=== PATIENT | male | born 1980 | race Hispanic/Latino ===

== ENCOUNTER 2019-05-12 06:35 | Day surgery (SDC) | payer OTHER ==
[2019-05-11 09:45] LABS: BASOPHILS % (AUTO) 0.6 % (0.0-5.0); EOSINOPHILS % (AUTO) 7.7 % (0.0-8.0); LYMPHOCYTES % (AUTO) 30.5 % (21.0-51.0); MEAN CORPUSCULAR HEMOGLOBIN 30.5 pg (27.0-33.0); MEAN CORPUSCULAR HGB CONC 32.8 g/dL (32.0-36.0); MEAN CORPUSCULAR VOLUME 92.9 fL (79-99); MONOCYTES % (AUTO) 8.6 % (3.0-13.0); NEUTROPHILS % (AUTO) 52.2 % (40.0-77.0); PLATELET COUNT (AUTO) 178 K/uL (130-400); RED BLOOD CELL COUNT(AUTO) 4.95 MIL/uL (4.50-6.20); WHITE BLOOD COUNT (AUTO) 7.8 K/uL (4.8-10.8)
[2019-05-11 10:00] VITALS: BP 153/95
[2019-05-11 10:00] LABS: CREATININE 0.8 mg/dL (0.5-1.5); POTASSIUM 4.8 mmol/L (3.5-5.1)
[2019-05-11] MEDS: CEFAZOLIN SODIUM 1 GM VIAL IVP SCH (10:30)
[2019-05-11 11:55] VITALS: BP 129/78
[2019-05-11] MEDS: LACTATED RINGERS 1000ML 1,000 ML IV SCH (12:19)
--- NOTE | 2019-05-11 12:25 | NUR ---
POTENTIAL FOR INFECTION: SHAVED RIGHT SHOULDER / RIGHT UPPER ARM PER MAKENNA ALARCON, FOLLOWED BY WIPING WITH CUCA: 2% CHLORHEXIDINE GLUCONATE CLOTH PATIENTS PRE-OP SKIN PREP.
--- NOTE | 2019-05-11 15:45 | NUR ---
PATIENT INFORMED THAT SURGERY WAS GOING TO BE CANCELED TODAY AND RESCHEDULED FOR TOMORROW MORNING. PATIENT INSTRUCTED TO EAT NOTHING AFTER MIDNIGHT TONIGHT AND REPORT TO HOSPITAL TOMORROW MORNING AT 6AM. PATIENT VERBALIZED UNDERSTANDING.
[2019-05-12] VITALS (12 sets, daily range): BP systolic 121–142; BP diastolic 70–83
[~2019-05-12] VITALS: Ht 182.9 cm; Wt 113.0 kg
[2019-05-12] MEDS ORDERED: LACTATED RINGERS 1000ML 1,000 ML IV ONE (06:52)
[2019-05-12] MEDS ORDERED: ROPIVACAINE 0.5% 5MG/ML 30ML IJ ONE (07:08)
[2019-05-12] MEDS: LACTATED RINGERS 1000ML 1,000 ML IV SCH (07:10)
[2019-05-12] MEDS ORDERED: ONDANSETRON HCL 4 MG/2 ML VIAL ONE (07:13)
[2019-05-12] MEDS ORDERED: LIDOCAINE PF 2% 5ML ABBOJECT ONE (07:13)
[2019-05-12] MEDS ORDERED: MIDAZOLAM HCL 1 MG/ML 2ML VIAL ONE (07:14)
[2019-05-12] MEDS ORDERED: PROPOFOL 10 MG/ML 20ML VIAL IV ONE (07:14)
[2019-05-12] MEDS ORDERED: ROCURONIUM 10MG/1ML SYR 10 MG/ML ML ONE (07:14)
[2019-05-12] MEDS ORDERED: GLYCOPYRROLATE 1 MG/5 ML SYRINGE ONE (07:14)
[2019-05-12] MEDS ORDERED: NEOSTIGMINE 5MG/5ML SYR IV ONE (07:14)
[2019-05-12] MEDS ORDERED: DEXAMETHASONE SOD PHOSPHATE 10MG/ML 1ML VIAL ONE (07:14)
[2019-05-12] MEDS ORDERED: FENTANYL CITRATE PF 50 MCG/1 ML 2ML VIAL ONE ×2 (07:15→08:48)
[2019-05-12] MEDS: CEFAZOLIN SODIUM 1 GM VIAL IVP SCH (08:00)
[2019-05-12] MEDS ORDERED: EPINEPHRINE 1 MG/ML 30ML VIAL IJ ONE (08:41)
[2019-05-12] MEDS ORDERED: LIDOCAINE HCL MDV 0.5% 50ML VIAL IJ ONE (09:18)
== END 2019-05-12 11:00 | disposition home or self-care (01) ==
LOC: DAH 06:35
PROVIDERS: ATTEND Orthopaedic Surgery
DX: M75.111 Incomplete rotator cuff tear or rupture of right shoulder, not specified as traumatic (principal); M75.41 Impingement syndrome of right shoulder; M75.51 Bursitis of right shoulder; F17.210 Nicotine dependence, cigarettes, uncomplicated; Z72.89 Other problems related to lifestyle; Z83.3 Family history of diabetes mellitus; Z82.49 Family history of ischemic heart disease and other diseases of the circulatory system; Z82.5 Family history of asthma and other chronic lower respiratory diseases
CPT/HCPCS: 29822; 29826; 36415; 64415; 76942; 80048; 85025; A4213; A4215 ×2; A4221 ×2; A4222 ×2; A4223 ×2; A4510 ×2; A4565; A4600 ×2; A4649 ×2; A4663 ×2; A4930 ×2; A5120; A6223; J0171; J0690; J1030; J1100; J2001; J2250; J2405; J2704; J2710; J2795; J3010 ×2; J3490 ×2; J7030 ×2; J7120 ×3

== ENCOUNTER 2025-02-04 16:20 | Emergency (ER) | payer OTHER ==
[~2025-02-04] VITALS: Ht 180.3 cm; Wt 106.6 kg
--- NOTE | 2025-02-04 17:19 | ERN ---
ED Note History of Present Illness Stated Complaint: RT SIDE FACIAL NUMBNESS Chief Complaint: Numbness Time Seen by MD: 16:51 Time Seen by Midlevel: 17:00 Dictation: Mr. Edmondson is a 44-year-old male with history of hypertension and nicotine dependence (smokes 5-6 cigarettes/day) who presented to the emergency department this afternoon for evaluation of tingling sensation of the lip. He reports two days of intermittent right-sided perioral tingling and a sensation that he could not hold water in from the right corner of his mouth. He has no true facial numbness. He denies weakness, vision changes, gait difficulty, dysarthria, dysphagia, dizziness, vision changes, or limb paresthesias. Allergies: Coded Allergies: No Known Drug Allergies (Unverified Allergy, Unknown, 05/11/19) Home Meds No Active Prescriptions or Reported Meds Past Medical History Past Medical History: Hypertension Additional Past Medical Hx: BELLS PALSY Surgical History: None PSYCH History: no pertinent psych hx Social History: Smokers (smokes 5-6 cigarettes/day), Lives with family RN Note Reviewed/Agreed w/PFSH: Yes Review of System Dictation REVIEW OF SYSTEMS: CONSTITUTIONAL: Patient denies fevers, chills, sweats and weight changes. EYES: Patient denies any visual symptoms. EARS, NOSE, AND THROAT: No difficulties with hearing. No symptoms of rhinitis or sore throat. CARDIOVASCULAR: Patient denies chest pains, palpitations, orthopnea and p aroxysmal nocturnal dyspnea. States blood pressure has been well controlled RESPIRATORY: No dyspnea on exertion, no wheezing or cough. GI: No nausea, vomiting, diarrhea, constipation, abdominal pain, hematochezia or melena. : No urinary hesitancy or dribbling. No nocturia or urinary frequency. No abnormal urethral discharge. MUSCULOSKELETAL: No myalgias or arthralgias. NEUROLOGIC: No chronic headaches, no seizures. Denies dizziness. Denies difficulty speaking. Denies difficulty swallowing. Denies difficulty walking. States that two days ago he noted a slight drooping right corner of the mouth and a tingling sensation. He states that he felt like he "could not hold water in". He states he had similar symptoms about 10 years ago but they were much worse. PSYCHIATRIC: Patient denies problems with mood disturbance. No problems with anxiety. ENDOCRINE: No excessive urination or excessive thirst. DERMATOLOGIC: Patient denies any rashes or skin changes. Initial Vital Sign VS Vital Signs Date Time Temp Pulse Resp B/P (MAP) Pulse Ox O2 Delivery O2 Flow Rate FiO2 02/04/25 16:25 98.1 62 20 135/78 99 Room Air 02/04/25 16:52 0 21 Physical Exam Dictation Vital signs: Reviewed. Afebrile. Constitutional: No acute distress. Non-toxic appearing. Head/Face: Normocephalic, atraumatic. Eyes: Periorbital areas with no swelling, redness, or edema. Lids and lashes are normal. Conjunctival injection is absent. Sclera anicteric. Pupils equal, round, reactive to light. ENT: Pinnas intact and no signs of trauma or erythema. Ear canals clear and no discharge. TMs no erythema. No nasal discharge or bleeding noted. Oropharynx with no exudate, redness, swelling, masses, exudates, or evidence of obstruction. Uvula midline. Mucous membranes moist. Neck: Trachea midline, no masses palpated, and no cervical lymphadenopathy. No swelling. Supple, full range of motion. Chest/Axilla: No tenderness, no crepitus, no paradoxical movement, no retractions. Cardiovascular: Regular rate, regular rhythm, no murmur, no gallops. Symmetric pulses. No peripheral edema. Twelve lead EKG reflects a sinus bradycardia without ST-elevation. BP 122/77. Respiratory: Respirations even and unlabored. Lung sounds clear; no wheezes, rales or rhonchi. Room air SpO2 97% Gastrointestinal: Inspection is normal. No distention is appreciated. Bowel sounds are normal. No mass or organomegaly . There is no tenderness. No rebound. No rigidity. No voluntary or involuntary guarding. No Parson's sign. Neurological: On exam he is alert and oriented with clear speech and no dysarthria. Cranial nerves II-XII are intact except for a small very mild right lower facial asymmetry at rest and with activation. Movement is symmetric, eyebrow raise is intact, eye closure strong. No dysarthria or aphasia. No dysphasia. Motor strength 5/5 in all extremities, normal gait, coordination is intact, sensation intact. NIHSS=1 minor facial palsy only. Musculoskeletal/Extremities: All extremities have full range of motion, no pain or tenderness on palpation. Symmetric pulses. Integumentary: Intact. Skin is normal color, warm and dry. Cap refill less than 3 seconds. Results (Laboratory/Radiology) Laboratory/Radiology Laboratory Tests Test 02/04/25 17:38 White Blood Count 7.9 K/uL (4.8-10.8) Red Blood Count 4.35 MIL/uL (4.50-6.20) L Hemoglobin 13.9 g/dL (14.0-18.0) L Hematocrit 42.0 % (42-54) Mean Corpuscular Volume 96.6 fL (79-99) Mean Corpuscular Hemoglobin 32.0 pg (27.0-33.0) Mean Corpuscular Hemoglobin Concent 33.1 g/dL (32.0-36.0) Red Cell Distribution Width 13.2 % (11.0-15.5) Platelet Count 165 K/uL (130-400) Mean Platelet Volume 11.2 fL (7.5-10.5) H Immature Granulocyte % (Auto) 0.5 % (0-1) Neutrophils (%) (Auto) 53.8 % (40.0-77.0) Lymphocytes (%) (Auto) 31.4 % (21.0-51.0) Monocytes (%) (Auto) 8.0 % (3.0-13.0) Eosinophils (%) (Auto) 5.9 % (0.0-8.0) Basophils (%) (Auto) 0.4 % (0.0-5.0) Neutrophils # (Auto) 4.2 K/uL (1.8-7.7) Lymphocytes # (Auto) 2.5 K/uL (1.0-4.8) Monocytes # (Auto) 0.6 K/uL (0.1-1.0) Eosinophils # (Auto) 0.46 K/uL (0.00-0.70) Basophils # (Auto) 0.03 K/uL (0.00-0.20) Absolute Immature Granulocyte (auto 0.04 K/uL (0-1) Nucleated Red Blood Cells 0.0 % (0.0-0.19) Sodium Level 136 mmol/L (136-145) Potassium Level 3.6 mmol/L (3.5-5.1) Chloride Level 102 mmol/L (101-111) Carbon Dioxide Level 28 mmol/L (21-32) Blood Urea Nitrogen 14 mg/dL (7-18) Creatinine 0.9 mg/dL (0.5-1.3) Glomerular Filtration Rate Calc 107 mL/min (>90) Random Glucose 94 mg/dL (70-105) Total Calcium 8.4 mg/dL (8.5-10.1) L Magnesium Level 2.00 mg/dL (1.80-2.40) Total Bilirubin 0.4 mg/dL (0.2-1.0) Direct Bilirubin 0.1 mg/dL (0.0-0.3) Aspartate Amino Transf (AST/SGOT) 17 U/L (10-37) Alanine Aminotransferase (ALT/SGPT) 25 U/L (12-78) Alkaline Phosphatase 50 U/L (50-136) Troponin I High Sensitivity 9 ng/L (4-75) Total Protein 6.9 g/dL (6.0-8.3) Albumin 3.5 g/dL (3.5-5.0) Labs Reviewed?: Yes EKG Comment: EKG Interpretation: Time Reviewed: 1829 Ventricular rate: 53 bpm NC Interval: 202 ms QRS duration: [address] segment elevation or depression. Clinical impression: Sinus bradycardia EKG Reviewed and interpreted by Dr Lora Ramos CT Scan Comment: PATIENT: MALINDA EDMONDSON JR MR#: [id number] : 1980 SEX: M AGE: 44 LOCATION: [facility] ORDER 15 STATUS: [facility] REPORT#: [id number] SERVICE 13 REASON: stroke symptoms ORDERING PHYSICIAN: JESSIE FERNANDEZ PROCEDURE: HEAD WO - CT HEAD/BRAIN W/O CONTRAST EXAM: CT Head Without IV contrast. CLINICAL HISTORY: stroke symptoms TECHNIQUE: Axial computed tomography images of the head/brain without intravenous contrast. COMPARISON: None provided. FINDINGS: BRAIN: No evidence of acute hemorrhage. No mass lesion. No CT evidence for acute territorial infarct. No midline shift or extra-axial collections. VENTRICLES: No hydrocephalus. ORBITS: The orbits are unremarkable. SINUSES AND MASTOIDS: Left maxillary and bilateral ethmoidal sinusitis. BONES: No fracture. SOFT TISSUES: Unremarkable. IMPRESSION: No acute intracranial abnormality. No acute intracranial hemorrhage / territorial infarcts. Recommend an MRI of the brain for further evaluation if symptoms persist. /[place] DICTATED BY: CATARINO LICONA MD DATE: 02/04/251921 ELECTRONICALLY SIGNED BY: CATARINO LICONA MD DATE: 02/04/251921 ED Course ED Course Orders Procedure Category Date Status Time Ct Head/Brain W/O CT 02/04/25 Resulted Contrast 17:14 Cbc With Differential LAB 02/04/25 Complete 17:14 Basic Metabolic Panel LAB 02/04/25 Complete 17:14 Hepatic Function Panel LAB 02/04/25 Complete 17:14 Magnesium LAB 02/04/25 Complete 17:14 12 Lead Ekg Tracing- EKG 02/04/25 Logged Technical 17:17 Troponin I High LAB 02/04/25 Complete Sensitivity 17:17 Vital Signs Date Time Temp Pulse Resp B/P (MAP) Pulse Ox O2 Delivery O2 Flow Rate FiO2 02/04/25 18:35 98.2 54 18 131/68 97 Room Air* 0 21 02/04/25 16:52 98.2 59 18 124/74 96 Room Air* 0 21 02/04/25 16:25 98.1 62 20 135/78 99 Room Air Vital signs remained stable; afebrile and normotensive with room air SpO2 96- 99%. Patient did not meet criteria for thrombolytics due to: Symptom onset greater than 48 hours ago, NIHSS=1 minor, not disabling deficit (subtle right lower facial droop). No other acute focal deficits or disabling symptoms that would benefit from thrombolysis. Therefore, withholding thrombolytics is appropriate and aligns with national stroke guidelines. He does not meet criteria for mechanical thrombectomy non disabling symptoms and delayed presentation. Patient received aspirin 325. He states he does not wish to be admitted to the hospital. I discussed with patient that although his CT scan is normal, his symptoms and exam may represent a small ischemic stroke or TIA. MRI brain and vascular imaging who recommended to fully you evaluate for acute ischemia or carotid disease. I explained that leaving before completing the stroke workup may result in worsening neurological symptoms, permanent facial weakness, disability, or future stroke. The patient verbalized understanding of these risks and has signed AMA form. Medical Decision Making MDM MDM: Differential diagnosis: Ischemic stroke, TIA, Mena's palsy, atypical migraine, electrolyte/metabolic cause Rationale: Tests considered and ordered secondary to shared decision making include: , EKG, CT Previous outside records reviewed: Old ER visits. Risk of complication and/or morbidity or mortality of patient management: None Medications-Per medication reconciliation Need for hospitalization: Patient does not meet criteria for hospitalization. Need for emergency major/minor surgery: No There are no social concerns with this patient. Prescription drug management: continue home medication Prescriptions will include symptomatic care Patient's prior external medical records from other ER visits were reviewed by me as indicated. Prior testing and results from previous visits were reviewed. Prior tests were taken into account with medical decision making and resource utilization, independent historian/historians were used to obtain complete medical history. I independently interpreted the test that were performed, results were reviewed by me and considered findings on radiology if ordered. Medical management and examination interpretation discussions were had by me with other qualified healthcare professionals as indicated for the patient's care. PATIENT ELECTED TO SIGN OUT AMA DX & DISP Disposition: AMA Departure Impression: Primary Impression: Possible TIA Condition: Stable Scripts No Active Prescriptions or Reported Meds Additional Instructions: Were evaluated for right-sided lip arm weakness and tingling. Your CT scan of the brain and blood work were reassuring but these tests can not rule out a small stroke or TIA. You still have a small right facial droop and additional testing (MRI brain, vascular imaging, and neurology consultation) who strongly recommended. You declined hospital admission for further stroke workup. He is extremely important that you seek additional care as soon as possible. Go to immediately to stroke center or ER if: Your facial droop worsens, you have trouble holding food or liquids in your mouth, you notice slurred speech or trouble finding words, you develop weakness/numbness in an arm or leg, you develop vision changes, double vision, or dizziness. You have difficulty walking or balancing. You have any new neurological symptoms occur. Call 911 if symptoms suddenly worsen. Follow up with your primary care provider in the next 1-2 days to review today's visit, monitor symptoms, and help arrange outpatient testing. They refer you to a neurologist. You were given aspirin today to help reduce the risk of stroke. Continue taking aspirin 81 mg daily. Do not start any new [id number] supplements without speaking to your doctor. No alcohol or illicit drugs, as these increased stroke risk. Avoid nicotine and smoking; smoking greatly increases your risk of future stroke. Stay well hydrated. Avoid strenuous activity until cleared by doctor. Why you need follow up. A CT scan can not detect many small strokes. MRI and vascular imaging (CT a or carotid ultrasound) are needed to determine whether a small stroke occurred and help prevent a larger stroke. If you change your mind you may return to any emergency department as stroke center at any time for admission and full stroke evaluation. Referrals: SELF,REFERRAL (PCP) Time of Disposition: 18:59 JESSIE FERNANDEZ FOAMITE MIXER Feb 04, 2025 17:19
[2025-02-04 17:48] LABS: IMMATURE GRANULOCYTE ABSOLUTE 0.04 K/uL (0-1); NUCLEATED RED BLOOD CELLS 0.0 % (0.0-0.19); PLATELET COUNT (AUTO) 165 K/uL (130-400); RED BLOOD CELL COUNT(AUTO) 4.35 MIL/uL (4.50-6.20); RED CELL DISTRIBUTION WIDTH 13.2 % (11.0-15.5); WHITE BLOOD COUNT (AUTO) 7.9 K/uL (4.8-10.8)
[2025-02-04 17:58] LABS: CREATININE 0.9 mg/dL (0.5-1.3); GLOMERULAR FILTR. RATE CALC 107.0 mL/min (>90); GLUCOSE,RANDOM 94.0 mg/dL (70-105); SODIUM SERUM 136.0 mmol/L (136-145); UREA NITROGEN, BLOOD 14.0 mg/dL (7-18)
[2025-02-04 18:02] LABS: ASPARTATE AMINOTRANSFERASE 17.0 U/L (10-37); TOTAL PROTEIN, SERUM 6.9 g/dL (6.0-8.3)
--- NOTE | 2025-02-04 18:23 | HMCIMG ---
EXAM: CT Head Without IV contrast. CLINICAL HISTORY: stroke symptoms TECHNIQUE: Axial computed tomography images of the head/brain without intravenous contrast. COMPARISON: None provided. FINDINGS: BRAIN: No evidence of acute hemorrhage. No mass lesion. No CT evidence for acute territorial infarct. No midline shift or extra-axial collections. VENTRICLES: No hydrocephalus. ORBITS: The orbits are unremarkable. SINUSES AND MASTOIDS: Left maxillary and bilateral ethmoidal sinusitis. BONES: No fracture. SOFT TISSUES: Unremarkable. IMPRESSION: No acute intracranial abnormality. No acute intracranial hemorrhage / territorial infarcts. Recommend an MRI of the brain for further evaluation if symptoms persist. /[place]
[2025-02-04 18:35] VITALS: BP 131/68; PULSE 54; RESP 18; TEMP 98.2; O2SAT 97
[2025-02-04] MEDS: ASPIRIN 325MG TAB PO ONE (19:11)
--- NOTE | 2025-02-05 10:26 | EKG ---
[facility] Test Date: 2025-02-04 Test Time: 18:30:51 Pat Name: MALINDA AVILEZ Department: ED Room: Gender: M Certified Low Vision Therapist: 07 : 1980 Requested By: JESSIE FERNANDEZ Order Number: [id number] Reading MD: Zach Vinson Measurements Intervals [place] Rate: 53 P: 33 FL: 202 QRS: -52 QRSD: 121 T: -7 QT: 441 QTc: 414 Interpretive Statements SINUS BRADYCARDIA Borderline prolonged FL interval Nonspecific IVCD with LAD Left ventricular hypertrophy Lateral infarct, age indeterminate No previous ECG available for comparison Electronically Signed On 02-07-2025 09:17:50 MAGNETIC TAPE TYPEWRITER OPERATOR by Zach Vinson Please click the below link to view image of tracing.
== END 2025-02-04 19:14 | disposition left against medical advice (07) ==
LOC: EDH 16:20
DX: R20.2 Paresthesia of skin (principal); I10 Essential (primary) hypertension; F17.210 Nicotine dependence, cigarettes, uncomplicated
CPT/HCPCS: 36415; 70450; 80048; 80076; 83735; 84484; 85025; 93005; 99284